=== PATIENT | female | born 1960 ===

== ENCOUNTER → 2021-04-14 | Outpatient (REF) ==
--- NOTE | 2021-04-15 05:38 | REP ---
INDICATION: FATOU INJUREY COMPARISON: None. TECHNIQUE: AP, lateral, coned-down views of the lumbar spine. FINDINGS: Three views of the lumbosacral spine demonstrate satisfactory alignment and lordosis without acute fracture / compression injury or subluxation. Moderate multilevel degenerative changes includes endplate sclerosis with marginal spurring, minimal disc space narrowing and hypertrophic facet changes. IMPRESSION: 1. No acute fracture / compression injury or subluxation. 2. Generalized age-related changes. <Electronically signed by Vj Ballard > 04/15/21 0519
== END ==
LOC: M PLAIMG 14:17
PROVIDERS: ATTEND Internal Medicine
DX: M54.50 Low back pain, unspecified (principal)